=== PATIENT | male | born 1975 | race Caucasian/White ===

== ENCOUNTER 2017-07-02 06:18 | Emergency (ER) | payer SELFPAY ==
[~2017-07-02] VITALS: Ht 165.1 cm; Wt 74.0 kg
[2017-07-02 06:30] VITALS: BP 119/77
[2017-07-02] MEDS: VISCOUS LIDOCAINE 2% 15 ML UDC MM PRN (09:06)
== END 2017-07-02 09:14 | disposition home or self-care (01) ==
LOC: ER 06:18
DX: J02.9 Acute pharyngitis, unspecified (principal)
CPT/HCPCS: 99282